=== PATIENT | female | born 1950 | race Caucasian/White ===

== ENCOUNTER → 2017-03-03 | Outpatient (CLI) | payer BC, MEDICARE ==
--- NOTE | 2017-03-07 12:41 | SLEEPCENT ---
DATE OF STUDY: 03/03/2017 ORDERING PROVIDER: Brendan Carl DO Nocturnal polysomnography was performed for retitration of pressure therapy in this patient with obstructive sleep apnea syndrome on pressure therapy, who demonstrated an abnormal nocturnal recording oximetry trace with desaturations into the 70s. For testing, the patient was fit with a [employer] full face mask of medium size. An initial bilevel pressure of inspiratory 8 over expiratory 4 was applied to the circuit, and the lights were extinguished. 8 hours and 32 minutes of data were reviewed. There were only 148 minutes of sleep identified. Sleep latency was quite prolonged at 149 minutes. Rapid eye movement (REM) latency was further prolonged at 339 minutes. Indeed, REM sleep was only achieved very late in the test. Overall sleep efficiency was only 29.4%. The patient's electrocardiogram (EKG) showed an underlying sinus rhythm with premature ventricular contractions (PVCs). Average heart rate 63 beats per minute. Electroencephalogram (EEG) showed some coarsening in background. Otherwise, normal waveforms for awake and sleep. Respiratory events persisted, prompting an increase in pressure therapy. Titration was difficult due to the poor sleep experienced by the patient in the laboratory. At the end of testing on a pressure of 16 over 12, the patient was able to sleep through REM. There were minor events, nonetheless, but no significant oxygen desaturations were seen. No significant limb activity was identified during the testing, and the remaining measures of sleep physiology were normal. IMPRESSION: Obstructive sleep apnea syndrome (G47.33). RECOMMENDATION: Based on this testing, the patient's obstructive events will be better addressed with an inspiratory pressure of 16 over an expiratory pressure of 12. Nonetheless, sleep was limited during this testing; and if symptoms persist, retitration from this higher pressure may be helpful.
== END ==
LOC: M SLEEP 19:42
PROVIDERS: ATTEND Nurse Practitioner Adult Health
DX: G47.33 Obstructive sleep apnea (adult) (pediatric) (principal)

== ENCOUNTER → 2017-11-15 | Day surgery (SDC) | payer MEDICARE ==
[~2017-11-15] MED LIST: BSS with VANC/TOB/EPI for EYE CASES IR; HEALON DUET (HEALON 10MG/ML 0.55ML & HEALON ENDOCOAT 30MG/ML 0.85ML) As Ordered; LEVALBUTEROL 1.25 MG/0.5 ML CONCENTRATE NEB As Ordered; LEVALBUTEROL 1.25 MG/0.5 ML CONCENTRATE NEB INH; LIDOCAINE 1% SDV 5 ML VIAL As Ordered; MOXIFLOXACIN IN BSS 0.25MG/0.25ML INTRACAMERAL INJ (OR EYE ONLY)(J2280) As Ordered; PHENYLEPHRINE HCL 10 % OPHTH. SOL 5ML OS; POVIDONE-IODINE 5% OPHTH PREP SOL 30ML As Ordered; TRIAMCINOLONE PRES FR 40 MG/ML 1ML(TRIESENCE)(OR EYE ONLY)(J3300 PER 1MG) As Ordered; fentaNYL 100 MCG/2 ML INJECTION (J3010) As Ordered
[2017-11-15] MEDS: CYCLOPENTOLATE 2% OPHTH SOLN 2ML BTL OS (10:11)
[2017-11-15] MEDS: TROPICAMIDE 1% OPHTH SOLN 2ML OS (10:12)
[2017-11-15] MEDS: OFLOXACIN 0.3 % (OCUFLOX) OPTH SOL 5ML OS (10:12)
[2017-11-15] MEDS: LIDOCAINE 3.5 % 1ML OPHTH TOPICAL GEL OU (10:12)
[2017-11-15] MEDS: PHENYLEPHRINE 2.5% OPHTH SOL 2ML OS (10:12)
[2017-11-15 10:22] LABS: BEDSIDE GLUCOSE 128 MG/DL (80-115)
== END | disposition home or self-care (01) ==
LOC: M SDC 09:14
DX: H25.9 Unspecified age-related cataract (principal); Z53.8 Procedure and treatment not carried out for other reasons

== ENCOUNTER 2017-12-06 07:07 | Day surgery (SDC) | payer MEDICARE ==
[2017-12-06] MEDS: BSS with VANC/TOB/EPI for EYE CASES IR (07:00)
[~2017-12-06 07:07] MED LIST changes: +ACETAMINOPHEN 325 MG TAB PO; -BSS with VANC/TOB/EPI for EYE CASES IR; +CYCLOPENTOLATE 2% OPHTH SOLN 2ML BTL OD; -HEALON DUET (HEALON 10MG/ML 0.55ML & HEALON ENDOCOAT 30MG/ML 0.85ML) As Ordered; -LEVALBUTEROL 1.25 MG/0.5 ML CONCENTRATE NEB As Ordered; -LEVALBUTEROL 1.25 MG/0.5 ML CONCENTRATE NEB INH; -LIDOCAINE 1% SDV 5 ML VIAL As Ordered; -MOXIFLOXACIN IN BSS 0.25MG/0.25ML INTRACAMERAL INJ (OR EYE ONLY)(J2280) As Ordered; +OFLOXACIN 0.3 % (OCUFLOX) OPTH SOL 5ML OD; +PHENYLEPHRINE 2.5% OPHTH SOL 2ML OD; +PHENYLEPHRINE HCL 10 % OPHTH. SOL 5ML OD; -PHENYLEPHRINE HCL 10 % OPHTH. SOL 5ML OS; -POVIDONE-IODINE 5% OPHTH PREP SOL 30ML As Ordered; -TRIAMCINOLONE PRES FR 40 MG/ML 1ML(TRIESENCE)(OR EYE ONLY)(J3300 PER 1MG) As Ordered; +TROPICAMIDE 1% OPHTH SOLN 2ML OD; -fentaNYL 100 MCG/2 ML INJECTION (J3010) As Ordered
[2017-12-06] MEDS ORDERED: MIDAZOLAM INJ 2 MG/2 ML VIAL (J2250) As Ordered (07:09)
[2017-12-06] MEDS ORDERED: fentaNYL 100 MCG/2 ML INJECTION (J3010) As Ordered (07:09)
[2017-12-06] MEDS: LIDOCAINE 3.5 % 1ML OPHTH TOPICAL GEL OU (08:06)
[2017-12-06] MEDS: ALPRAZolam 0.25 MG TAB PO (08:06)
[2017-12-06 08:12] LABS: BEDSIDE GLUCOSE 109 MG/DL (80-115)
[2017-12-06] MEDS: POVIDONE-IODINE 5% OPHTH PREP SOL 30ML As Ordered (08:59)
[2017-12-06] MEDS: TRIAMCINOLONE PRES FR 40 MG/ML 1ML(TRIESENCE)(OR EYE ONLY)(J3300 PER 1MG) As Ordered (09:05)
[2017-12-06] MEDS: MOXIFLOXACIN IN BSS 0.25MG/0.25ML INTRACAMERAL INJ (OR EYE ONLY)(J2280) As Ordered (09:05)
[2017-12-06] MEDS: LIDOCAINE 1% SDV 5 ML VIAL As Ordered (09:05)
[2017-12-06] MEDS: HEALON DUET (HEALON 10MG/ML 0.55ML & HEALON ENDOCOAT 30MG/ML 0.85ML) As Ordered (09:05)
[2017-12-06] MEDS: AcetaZOLAMIDE 500 MG ER CAP PO (09:30)
[2017-12-06] MEDS ORDERED: AcetaZOLAMIDE 500 MG ER CAP As Ordered (09:31)
[2017-12-06] MEDS ORDERED: TRIMETHOBENZAMIDE 300 MG CAP PO (10:00)
== END 2017-12-06 10:10 | disposition home or self-care (01) ==
LOC: M SDC 07:07
DX: H25.9 Unspecified age-related cataract (principal); E11.9 Type 2 diabetes mellitus without complications; E78.5 Hyperlipidemia, unspecified; J44.9 Chronic obstructive pulmonary disease, unspecified; Z79.82 Long term (current) use of aspirin; Z79.899 Other long term (current) drug therapy; G47.30 Sleep apnea, unspecified
CPT/HCPCS: 66984

== ENCOUNTER 2018-01-09 07:38 | Day surgery (SDC) | payer MEDICARE ==
[~2018-01-09 07:38] MED LIST changes: -ACETAMINOPHEN 325 MG TAB PO; -CYCLOPENTOLATE 2% OPHTH SOLN 2ML BTL OD; -OFLOXACIN 0.3 % (OCUFLOX) OPTH SOL 5ML OD; -PHENYLEPHRINE 2.5% OPHTH SOL 2ML OD; -PHENYLEPHRINE HCL 10 % OPHTH. SOL 5ML OD; +PHENYLEPHRINE HCL 10 % OPHTH. SOL 5ML OS; -TROPICAMIDE 1% OPHTH SOLN 2ML OD
[2018-01-09] MEDS: LIDOCAINE 3.5 % 1ML OPHTH TOPICAL GEL OU (08:31)
[2018-01-09] MEDS: CYCLOPENTOLATE 2% OPHTH SOLN 2ML BTL OS (08:31)
[2018-01-09] MEDS: PHENYLEPHRINE 2.5% OPHTH SOL 2ML OS (08:32)
[2018-01-09] MEDS: OFLOXACIN 0.3 % (OCUFLOX) OPTH SOL 5ML OS (08:32)
[2018-01-09] MEDS: TROPICAMIDE 1% OPHTH SOLN 2ML OS (08:32)
[2018-01-09 08:42] LABS: BEDSIDE GLUCOSE 123 MG/DL (80-115)
[2018-01-09] MEDS ORDERED: ALBUTEROL SULFATE 2.5 MG/0.5 ML INH NEB SOLN As Ordered (08:46)
[2018-01-09] MEDS: ALBUTEROL SULFATE 2.5 MG/0.5 ML INH NEB SOLN INH (08:58)
[2018-01-09] MEDS: HEALON DUET (HEALON 10MG/ML 0.55ML & HEALON ENDOCOAT 30MG/ML 0.85ML) As Ordered (09:41)
[2018-01-09] MEDS: TRIAMCINOLONE PRES FR 40 MG/ML 1ML(TRIESENCE)(OR EYE ONLY)(J3300 PER 1MG) As Ordered (09:41)
[2018-01-09] MEDS: LIDOCAINE 1% SDV 5 ML VIAL As Ordered (09:41)
[2018-01-09] MEDS: POVIDONE-IODINE 5% OPHTH PREP SOL 30ML As Ordered (09:41)
[2018-01-09] MEDS: BSS with VANC/TOB/EPI for EYE CASES IR (09:41)
[2018-01-09] MEDS: MOXIFLOXACIN IN BSS 0.25MG/0.25ML INTRACAMERAL INJ (OR EYE ONLY)(J2280) As Ordered (09:41)
[2018-01-09] MEDS ORDERED: MIDAZOLAM INJ 2 MG/2 ML VIAL (J2250) As Ordered (09:42)
[2018-01-09] MEDS ORDERED: fentaNYL 100 MCG/2 ML INJECTION (J3010) As Ordered (09:42)
== END 2018-01-09 10:35 | disposition home or self-care (01) ==
LOC: M SDC 10:35
DX: H25.9 Unspecified age-related cataract (principal); E78.5 Hyperlipidemia, unspecified; E11.9 Type 2 diabetes mellitus without complications; J44.9 Chronic obstructive pulmonary disease, unspecified; Z79.899 Other long term (current) drug therapy; G47.30 Sleep apnea, unspecified
CPT/HCPCS: 66984

== ENCOUNTER → 2018-05-30 | Outpatient (REF) | payer MEDICARE ==
[2018-05-30 15:01] LABS: NT-PRO BNP 46 PG/ML (<125)
== END ==
LOC: M LAB REF 12:58
DX: R06.2 Wheezing (principal)
CPT/HCPCS: 83880

== ENCOUNTER → 2018-07-12 | Outpatient (REF) | payer MEDICARE ==
[~2018-07-12] MED LIST changes: +ASPI1TAB PO; +FISH5CAP PO; +FURO80TA2; +IPRA0.00 INH; +METF500T13 PO; +MONT10TA2; -PHENYLEPHRINE HCL 10 % OPHTH. SOL 5ML OS; +PROAAER10 INH; +SPIR50TA4; +SUPECAP2 PO; +SYMB16INH
[2018-07-12 13:53] LABS: BASO % 0.3 % (0.0-1.0); EOS # 0.1 10^3/uL (0.0-0.50); EOS % 0.6 % (0.0-3.0); HEMATOCRIT 52.8 % (36.0-47.0); HEMOGLOBIN 16.8 g/dl (12.0-15.5); LYMPH # 0.5 10^3/uL (1.5-4.5); LYMPH % 5.2 % (24.0-44.0); MEAN CORPUSCULAR HEMOGLOBIN 30.4 pg (27.0-33.0); MEAN CORPUSCULAR HGB CONC 31.8 g/dl (32.0-36.5); MEAN CORPUSCULAR VOLUME 95.5 fl (80.0-96.0); MONO # 0.5 10^3/uL (0.0-0.8); MONO % 5.6 % (0.0-5.0); NEUTROPHILS # 8.2 10^3/uL (1.8-7.7); NEUTROPHILS % 87.9 % (36.0-66.0); PLATELET COUNT, AUTOMATED 209 10^3/uL (150-450); RED BLOOD COUNT 5.53 10^6/uL (4.00-5.40); WHITE BLOOD COUNT 9.3 10^3/uL (4.0-10.0)
[2018-07-15 00:08] LABS: D001-IgE D pteronyssinus <0.10 kU/L (Class 0); E001-IgE Cat Epith/Dander < 0.10 kU/L (Class 0); E005-IgE Dog Dander < 0.10 kU/L (Class 0); G002-IgE Bermuda Grass < 0.10 kU/L (Class 0); G008-IgE Kentucky Bluegrass < 0.10 kU/L (Class 0); M001-IgE Penicillium chrysogen < 0.10 kU/L (Class 0); M002 IgE Cladosporium herbaru < 0.10 kU/L (Class 0); M003 IgE Aspergillus fumigatu < 0.10 kU/L (Class 0); M006-IgE Alternaria alternata < 0.10 kU/L (Class 0); T001-IgE Maple/Box Elder < 0.10 kU/L (Class 0); T003-IgE Common Silver Birch < 0.10 kU/L (Class 0); T006-IgE Cedar, Mountain < 0.10 kU/L (Class 0); T007-IgE Oak, White < 0.10 kU/L (Class 0); T008-IgE Elm, American < 0.10 kU/L (Class 0); T015-IgE Ash, White < 0.10 kU/L (Class 0); T041-IgE Hickory, White < 0.10 kU/L (Class 0); T070-IgE White Mulberry < 0.10 kU/L (Class 0); W001-IgE Ragweed, Short < 0.10 kU/L (Class 0); W009-IgE Plantain, English < 0.10 kU/L (Class 0); W014-IgE Pigweed, Rough < 0.10 kU/L (Class 0); W018-IgE Sheep Sorrel < 0.10 kU/L (Class 0)
== END ==
LOC: M LAB REF 13:12
PROVIDERS: ATTEND Internal Medicine Pulmonary Disease
DX: J45.50 Severe persistent asthma, uncomplicated (principal); E66.2 Morbid (severe) obesity with alveolar hypoventilation